=== PATIENT | female | born 1935 ===

== ENCOUNTER 2016-12-17 20:09 | Emergency (ER) | payer OTHER ==
[2016-12-17 20:10] VITALS: BMI 26.2
[2016-12-17 20:19] VITALS: TEMP 97.7; O2SAT 97
--- NOTE | 2016-12-17 21:04 | C.PDOC ---
History Of Present Illness 81 y/o female, whose past medical history includes HTN, hyperlipidemia, diabetes , and polio, with left lower leg weakness, presents to the emergency department for evaluation of worsening periumbilical abdominal pain that radiates to the right flank. Otherwise, denies any n/v/d, chest pain, shortness of breath, headache, dizziness, fever, or chills. Time Seen by Provider: 12/17/16 20:48 Chief Complaint (Nursing): Abdominal Pain History Per: Patient History/Exam Limitations: no limitations Onset/Duration Of Symptoms: Days Current Symptoms Are (Timing): Still Present Location Of Pain/Discomfort: Periumbilical Radiation Of Pain To:: Flank (right) Quality Of Discomfort: "Pain" Associated Symptoms: denies: Fever, Chills, Nausea, Vomiting, Diarrhea, Loss Of Appetite, Back Pain, Chest Pain, Constipation, Urinary Symptoms Exacerbating Factors: None Alleviating Factors: None Recent travel outside of the [place]: No Additional History Per: Patient Abnormal Vaginal Bleeding: No Past Medical History Reviewed: Historical Data, Nursing Documentation, Vital Signs Vital Signs: Last Vital Signs Temp 97.7 F 12/17/16 20:18 Pulse 69 12/17/16 21:54 Resp 18 12/17/16 21:54 BP 175/79 H 12/17/16 21:54 Pulse Ox 97 12/17/16 21:54 - Medical History PMH: Anxiety, Arthritis, Depression, Diabetes, HTN, Hypercholesterolemia, Hypothyroidism, Peripheral Edema Denies: Chronic Kidney Disease Surgical History: Cholecystectomy - [facility] Procedures INJECT/INFUSE ELECTROLYT (01/16/15) INJECT/INFUSE NEC (01/16/15) Family History: States: Unknown Family Hx - Social History Hx Tobacco Use: Yes (Quit 20yrs ago) Hx Alcohol Use: No Hx Substance Use: No - Immunization History Hx Tetanus Toxoid Vaccination: No Hx Influenza Vaccination: Yes Hx Pneumococcal Vaccination: Yes Review Of Systems Except As Marked, All Systems Reviewed And Found Negative. Constitutional: Negative for: Fever, Chills Cardiovascular: Negative for: Chest Pain, Palpitations Respiratory: Negative for: Cough, Shortness of Breath Gastrointestinal: Positive for: Abdominal Pain. Negative for: Nausea, Vomiting , Diarrhea, Constipation Genitourinary: Negative for: Dysuria, Frequency, Incontinence, Hematuria Skin: Negative for: Rash, Bruising Neurological: Negative for: Headache, Dizziness Physical Exam - Physical Exam Appears: Non-toxic, No Acute Distress Skin: Normal Color, Warm, Dry Head: Atraumatic, Normacephalic Eye(s): bilateral: Normal Inspection Neck: Normal ROM, Supple Chest: Symmetrical Cardiovascular: Rhythm Regular, No Murmur Respiratory: Normal Breath Sounds, No Rales, No Rhonchi, No Wheezing Gastrointestinal/Abdominal: Soft, Tenderness (mild right periumbilical), No Guarding, No Rebound Back: CVA Tenderness (right), No Vertebral Tenderness, No Paraspinal Tenderness Extremity: Bilateral: Atraumatic, Normal ROM Neurological/Psych: Oriented x3, Normal Speech, Normal Cognition ED Course And Treatment - Laboratory Results Result Diagrams: 12/17/16 21:05 12/17/16 21:05 ECG: Interpreted By Me, Viewed By Me ECG Rhythm: Sinus Rhythm ECG Interpretation: No Acute Changes Interpretation Of ECG: No ST wave changes. Rate From EC (bpm) O2 Sat by Pulse Oximetry: 97 (on RA) Pulse Ox Interpretation: Normal Progress Note: Blood work, urinalysis, Abd & pelvis CT scan, EKG ordered and reviewed. Patient was treated with Toradol, and Pantoprazole. Medical Decision Making Medical Decision Making: r/o gastirits vs uti/pyelo vs renal stone- labs imaging pending. pt well appearing, minimal ttp on exam 1015: pt reasessed labs ct unremarkbable. pain improved. advise outpt f/u and return precautions Disposition - Disposition Referrals: Non [facility] Provider, [Primary Care Provider] - Disposition Time: 22:12 Condition: STABLE Additional Instructions: please follow up with your doctor. return to er with worsening symptoms or concerns. Prescriptions: Famotidine [Pepcid] 20 mg PO DAILY #20 tab Instructions: Acute Abdominal Pain (ED) - Clinical Impression Clinical Impression: Abdominal pain - Scribe Statement The provider has reviewed the documentation as recorded by the Scribcamelia Rosenthal All medical record entries made by the Scribe were at my direction and personally dictated by me. I have reviewed the chart and agree that the record accurately reflects my personal performance of the history, physical exam, medical decision making, and the department course for this patient. I have also personally directed, reviewed, and agree with the discharge instructions and disposition.
[2016-12-17 21:09] LABS: BASO % 0.5 % (0.0-2.0); EOS # 0.2 K/uL (0.0-0.7); EOS % 1.8 % (0.0-4.0); HEMOGLOBIN 13.9 g/dL (11.0-16.0); LYMPH # 3.4 K/uL (1.0-4.3); LYMPH % 40.1 % (20.0-40.0); MEAN CELL VOLUME 89.8 fL (81.0-99.0); MEAN CORPUSCULAR HEMOGLOBIN 30.7 pg (27.0-31.0); MEAN CORPUSCULAR HGB CONC 34.1 g/dL (33.0-37.0); MEAN PLATELET VOLUME 7.6 fL (7.2-11.7); MONO # 0.6 K/uL (0.0-0.8); MONO % 6.6 % (0.0-10.0); NEUT # 4.3 K/uL (1.8-7.0); NRBC % 0.1 % (0.0-2.0); RBC 4.55 Mil/uL (3.80-5.20); RED CELL DISTRIBUTION WIDTH 13.7 % (11.5-14.5); WHITE BLOOD COUNT 8.5 K/uL (4.8-10.8)
[2016-12-17 21:16] LABS: ALBUMIN 4.1 g/dL (3.5-5.0)
[2016-12-17 21:19] LABS: ALB/GLOB RATIO 1.1 (1.0-2.1); AST/SGOT 20 U/L (14-36); BLOOD UREA NITROGEN 16 mg/dL (7-17); GFR AFRICAN-AMERICAN > 60; GFR NON-AFRICAN AMERICAN > 60
[2016-12-17 21:20] LABS: ALT/SGPT 26 U/L (9-52); CALCIUM 8.5 mg/dl (8.6-10.4); LIPASE 106 U/L (23-300)
[2016-12-17 21:35] LABS: PROTHROMBIN TIME 11.6 SECONDS (9.7-12.2)
--- NOTE | 2016-12-17 21:53 | CT ---
EXAM: CT Abdomen and Pelvis Without Intravenous Contrast CLINICAL HISTORY: 81 years old, female; Pain; Abdominal pain; Localized; Right; Additional info: Abd pain TECHNIQUE: Axial computed tomography images of the abdomen and pelvis without intravenous contrast. This CT exam was performed using one or more of the following dose reduction techniques: automated exposure control, adjustment of the mA and/or kV according to patient size, and/or use of iterative reconstruction technique. Coronal and sagittal reformatted images were created and reviewed. COMPARISON: No relevant prior studies available. FINDINGS: Limitations: Lack of intravenous contrast. Motion artifact - mild. Lower thorax: Minimal atelectasis/scarring. Coronary artery calcifications. ABDOMEN: Liver: Small hepatic calcification. Gallbladder and bile ducts: Gallbladder not visualized. No ductal dilation. Pancreas: Unremarkable. No ductal dilation. Spleen: Small splenic calcification. No splenomegaly. Adrenals: No mass. Kidneys and ureters: No renal calculi. No hydronephrosis. Stomach and bowel: Few scattered diverticula within colon. No associated inflammatory stranding. No definite mural thickening. No obstruction. Appendix: Normal caliber. No inflammation. PELVIS: Bladder: Unremarkable. No stones. Reproductive: Unremarkable as visualized. ABDOMEN and PELVIS: Intraperitoneal space: No significant fluid collection. No free air. Bones/joints: Mild degenerative changes of spine. Mild deformity superior endplate L1 vertebral body, chronic. Soft tissues: Partial atrophy visualized musculature. Vasculature: Aksh-ut-bykmmdew atherosclerotic disease. No aneurysm. Lymph nodes: No pathologically enlarged lymph nodes. IMPRESSION: 1. No definite acute intraabdominal abnormality. 2. Incidental/non-acute findings are described above.
[2016-12-17 21:56] LABS: SQUAMOUS EPITHIAL 6 /hpf (0-5); URINE BACTERIA RARE (<OCC); URINE BILIRUBIN NEGATIVE (NEGATIVE); URINE BLOOD NEGATIVE (NEGATIVE); URINE CLARITY Clear (Clear); URINE COLOR Straw (YELLOW); URINE GLUCOSE (UA) 1+ mg/dL (Normal); URINE LEUKOCYTE ESTERASE NEG Leu/uL (Negative); URINE NITRATE NEGATIVE (NEGATIVE); URINE PROTEIN 2+ mg/dL (NEGATIVE); URINE UROBILINOGEN NORMAL mg/dL (0.2-1.0)
[2016-12-17 21:57] VITALS: BP 175/79; PULSE 69; RESP 18
--- NOTE | 2016-12-18 12:12 | CARD ---
APPROVED REPORT EKG Measurement Heart [id number] <Conclusion> Normal sinus rhythm Left axis deviation Abnormal ECG
== END 2016-12-17 22:35 | disposition home or self-care (01) ==
LOC: C.ER 20:09 → SUPCPDRO 20:09 → C.ER 22:35
DX: R10.33 Periumbilical pain (principal)
CPT/HCPCS: 74176; 80053; 81001; 82948; 83690; 84484; 85025; 85610; 85730; 93005; 96374; 96375; 99285; C9113; J1885

== ENCOUNTER 2017-06-22 13:18 | Emergency (ER) | payer OTHER ==
[2017-06-22 13:19] VITALS: BMI 26.2
[2017-06-22 13:29] VITALS: O2SAT 96
--- NOTE | 2017-06-22 13:42 | C.PDOC ---
History Of Present Illness 82-year-old female, PMHx includes Anxiety, Arthritis, Bipolar Disorder, Depression, Diabetes, Deep Vein Thrombosis, Hypertension, Hypercholesterolemia, Hypothyroidism, and Peripheral Edema, presents to the emergency department accompanied by restaurant crew, with complaints of left-sided abdominal and back pain for the past three days. Patient is taking Tylenol at home with minimal relief. Secondary complaint is numbness in B/L hands and right side of face at 11:30 this morning that has now resolved. No changes in speech, no facial droop, no changes in vision, no nausea/vomiting, diarrhea, fevers or chills. Time Seen by Provider: 06/22/17 13:30 Chief Complaint (Nursing): Back Pain History Per: Family History/Exam Limitations: no limitations Onset/Duration Of Symptoms: Days Current Symptoms Are (Timing): Still Present Severity: Moderate Past Medical History Reviewed: Historical Data, Nursing Documentation, Vital Signs Vital Signs: Last Vital Signs Temp 97.5 F L 06/22/17 19:06 Pulse 99 H 06/22/17 19:06 Resp 20 06/22/17 19:06 BP 180/81 H 06/22/17 19:06 Pulse Ox 96 06/22/17 19:06 - Medical History PMH: Anxiety, Arthritis, Bipolar Disorder, Depression, Diabetes, Deep Vein Thrombosis, HTN, Hypercholesterolemia, Hypothyroidism, Peripheral Edema Denies: Chronic Kidney Disease Surgical History: Cholecystectomy - [facility] Procedures INJECT/INFUSE ELECTROLYT (01/16/15) INJECT/INFUSE NEC (01/16/15) Family History: States: No Known Family Hx - Social History Hx Tobacco Use: Yes (Quit 20yrs ago) Hx Alcohol Use: No Hx Substance Use: No - Immunization History Hx Tetanus Toxoid Vaccination: No Hx Influenza Vaccination: Yes Hx Pneumococcal Vaccination: Yes Review Of Systems Except As Marked, All Systems Reviewed And Found Negative. Constitutional: Negative for: Fever, Chills Cardiovascular: Negative for: Chest Pain, Palpitations Respiratory: Negative for: Shortness of Breath Gastrointestinal: Positive for: Abdominal Pain Musculoskeletal: Positive for: Back Pain, Leg Pain (chronic.) Neurological: Positive for: Numbness (right face, and hands, now resolved.). Negative for: Incoordination, Change in Speech, Confusion, Altered Mental Status , Headache, Dizziness Physical Exam - Physical Exam Appears: Non-toxic, No Acute Distress, Other (Appears in pain) Skin: Warm, Dry, No Rash Head: Atraumatic, Normacephalic Eye(s): bilateral: Normal Inspection, PERRL Oral Mucosa: Moist Lips: Normal Appearing Neck: Normal ROM Chest: Symmetrical Cardiovascular: Rhythm Regular, No Murmur Respiratory: Normal Breath Sounds, No Accessory Muscle Use Gastrointestinal/Abdominal: Soft, Tenderness (Left-sided), No Guarding, No Rebound Back: CVA Tenderness (Left) Extremity: Deformity (chronic, left lower extremity, Hx of Polio) Pulses: Left Radial: Normal, Right Radial: Normal, Left Femoral: Normal, Right Femoral: Normal Neurological/Psych: Oriented x3, Normal Speech, Other (No focal deficit.) ED Course And Treatment - Laboratory Results Result Diagrams: 06/22/17 14:04 06/22/17 14:41 ECG: Interpreted By Me, Viewed By Me ECG Rhythm: Sinus Rhythm ECG Interpretation: No Acute Changes Rate From EC O2 Sat by Pulse Oximetry: 96 Pulse Ox Interpretation: Normal Medical Decision Making Medical Decision Makin pt feeling better, pain starting to return, mainly in back now [address] Weir will admit [address] Ortiz will consult Disposition - Disposition Disposition: AGAINST MEDICAL ADVICE Disposition Time: 17:51 Condition: STABLE Forms: [facility] (Estonian) - Clinical Impression Clinical Impression: Abdominal pain, Back pain, Celiac artery stenosis - Scribe Statement The provider has reviewed the documentation as recorded by the Scribe (Remedios Alvarez) All medical record entries made by the Scribe were at my direction and personally dictated by me. I have reviewed the chart and agree that the record accurately reflects my personal performance of the history, physical exam, medical decision making, and the department course for this patient. I have also personally directed, reviewed, and agree with the discharge instructions and disposition.
[2017-06-22 14:17] LABS: BASO # 0.1 K/uL (0.0-0.2); BASO % 0.5 % (0.0-2.0); EOS # 0.1 K/uL (0.0-0.7); EOS % 0.8 % (0.0-4.0); HEMOGLOBIN 15.3 g/dL (11.0-16.0); LYMPH # 3.3 K/uL (1.0-4.3); LYMPH % 28.6 % (20.0-40.0); MEAN CELL VOLUME 90.8 fL (81.0-99.0); MEAN CORPUSCULAR HEMOGLOBIN 30.9 pg (27.0-31.0); MEAN PLATELET VOLUME 8.7 fL (7.2-11.7); MONO # 0.6 K/uL (0.0-0.8); MONO % 5.2 % (0.0-10.0); NEUT # 7.5 K/uL (1.8-7.0); NEUT % 64.9 % (50.0-75.0); RBC 4.95 Mil/uL (3.80-5.20); RED CELL DISTRIBUTION WIDTH 13.5 % (11.5-14.5); WHITE BLOOD COUNT 11.5 K/uL (4.8-10.8)
[2017-06-22] MEDS ORDERED: Morphine 4 MG/ML VIAL ONE (14:38)
--- NOTE | 2017-06-22 14:52 | RAD ---
HISTORY: abd and back pain COMPARISON: 03/30/2017 FINDINGS: LUNGS: No active pulmonary disease. PLEURA: No significant pleural effusion identified, no pneumothorax apparent. CARDIOVASCULAR: Normal. OSSEOUS STRUCTURES: No significant abnormalities. VISUALIZED UPPER ABDOMEN: Normal. OTHER FINDINGS: None. IMPRESSION: No active disease.
[2017-06-22 14:58] LABS: ALBUMIN 4.6 g/dL (3.5-5.0); ALT/SGPT 31 U/L (9-52); AST/SGOT 29 U/L (14-36); BLOOD UREA NITROGEN 19 mg/dL (7-17); CALCIUM 9.9 mg/dl (8.6-10.4); GFR AFRICAN-AMERICAN > 60; GFR NON-AFRICAN AMERICAN > 60; LIPASE 51 U/L (23-300)
[2017-06-22] MEDS ORDERED: Iodixanol 320 mg/ml 150 ml Bottle IV ONE (15:50)
--- NOTE | 2017-06-22 16:47 | CT ---
PROCEDURE: CT Angiography Chest, Abdomen and Pelvis with and without intravenous contrast HISTORY: abd pain rad to back, facial numbness COMPARISON: None. TECHNIQUE: Contiguous axial images of the chest, abdomen and pelvis were obtained in the phase of aortic enhancement. A noncontrast enhanced CT of the chest was also obtained to evaluate for possible intramural thrombus. Coronal and sagittal reformats were generated. IV dose administered: 100 mL Visipaque 320 Radiation dose: Total exam DLP = 936.08 mGy-cm. This CT exam was performed using one or more of the following dose reduction techniques: Automated exposure control, adjustment of the mA and/or kV according to patient size, and/or use of iterative reconstruction technique. FINDINGS: CT ANGIOGRAPHY OF THE CHEST WITH & WITHOUT CONTRAST: AORTA (CHEST AND ABDOMEN): The thoracic and abdominal aorta are unremarkable, without aneurysm, dissection or rupture. No intramural thrombus identified in the thoracic aorta on the non-contrast ct of the chest. There is approximately 70 percent stenosis of the proximal celiac axis. The SMA and NICOLE are widely patent. The renal arteries are widely patent. The pelvic arteries are unremarkable. LUNGS: Clear. No nodule, mass or consolidation. MEDIASTINUM: Normal caliber aorta and pulmonary arterial trunk. No lymphadenopathy. 10 mm nodule in the right lobe of the thyroid. Correlate with thyroid ultrasound examination on a nonemergent basis. Normal heart size. Coronary arterial calcification. LYMPH NODES: Unremarkable. PLEURA: Unremarkable. No pneumothorax. No pleural fluid. BONES: Thoracolumbar dextroscoliosis. No fracture. OTHER FINDINGS: None. CT ANGIOGRAPHY OF THE ABDOMEN AND PELVIS WITH CONTRAST: LIVER: Unremarkable. No gross lesion or ductal dilatation. GALLBLADDER AND BILE DUCTS: Unremarkable. PANCREAS: Unremarkable. No gross lesion or ductal dilatation. SPLEEN: Unremarkable. ADRENALS: Unremarkable. No mass. KIDNEYS AND URETERS: Unremarkable. No hydronephrosis. No solid mass. VASCULATURE: Unremarkable. No aortic aneurysm. STOMACH AND BOWEL: Unremarkable. No obstruction. No gross mural thickening. APPENDIX: Not positively identified. No secondary findings. PERITONEUM: Unremarkable. No free fluid. No free air. LYMPH NODES: Unremarkable. No enlarged lymph nodes. BLADDER: Unremarkable. REPRODUCTIVE: Normal uterus BONES: No acute fracture. OTHER FINDINGS: None. IMPRESSION: No evidence of aortic dissection or thoracic or abdominal aortic aneurysm. 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 Additional minor findings as above.
[2017-06-22 17:17] LABS: VENOUS BLOOD GAS PCO2 45 mmHg (40-60); VENOUS BLOOD GAS PO2 35 mm/Hg (30-55); VENOUS BLOOD PH 7.38 (7.32-7.43)
[2017-06-22] MEDS ORDERED: Sodium Chloride 0.9% 1,000 ML IV SCH (18:00)
[2017-06-22 18:25] LABS: SQUAMOUS EPITHIAL 23 /hpf (0-5); URINE BACTERIA OCC (<OCC); URINE BILIRUBIN NEGATIVE (NEGATIVE); URINE BLOOD NEGATIVE (NEGATIVE); URINE CLARITY Hazy (Clear); URINE COLOR Yellow (YELLOW); URINE GLUCOSE (UA) 1+ mg/dL (Normal); URINE LEUKOCYTE ESTERASE 3+ Leu/uL (Negative); URINE NITRATE NEGATIVE (NEGATIVE); URINE PROTEIN 3+ mg/dL (NEGATIVE); URINE UROBILINOGEN NORMAL mg/dL (0.2-1.0)
[2017-06-22 19:06] VITALS: BP 180/81; PULSE 99; RESP 20; TEMP 97.5
[2017-06-22] MEDS ORDERED: Morphine 4 MG/ML VIAL IV PRN (19:26)
--- NOTE | 2017-06-22 20:09 | CP.PCM.HP ---
History of Present Illness - History of Present Illness History of Present Illness: CC: "abdominal pain" HPI: 82 year old female with past medical history of DM, HTN, polio presents to the ED for abdominal pain. She states the pain has been going on for the past 3 days. She states she only feels the pain when she moves. She states the pain is low at this moment but could not give a number. Patient could not describe the pain.. She states the pain radiates to her left side and back. Patient denies nausea, vomiting, diarrhea, constipation, chest pain, difficulty breathing, or fever. She states she has been able to eat without pain. PMD: Dr. Dr. Fay Rodgers Past Medical History: DM, HTN, polio, thyroid (patient was not sure), arthritis Past Surgical History: Cholecystectomy, blood clot in the left arm, right eye glaucoma Medications: Patient's daughter will bring next day Allergies: NKDA Social History: Lives with , used a walker but for the past 8 years has been in a wheel chair, denies illicit drug use and alcohol. Smoked for about 30 years about 1 pack per day. Present on Admission - Present on Admission Any Indicators Present on Admission: No Review of Systems - Constitutional Constitutional: absent: Fever - Cardiovascular Cardiovascular: absent: Chest Pain, Dyspnea - Respiratory Respiratory: absent: Dyspnea - Gastrointestinal Gastrointestinal: Abdominal Pain (left abdominal pain radiating to her back ). absent: Nausea, Vomiting - Genitourinary Genitourinary: absent: Dysuria - Musculoskeletal Musculoskeletal: absent: Numbness, Tingling - Neurological Neurological: absent: Dizziness, Numbness, Weakness Past Patient History - Infectious Disease Hx of Infectious Diseases: None - Tetanus Immunizations Tetanus Immunization: Unknown - Past Medical History & Family History Past Medical History?: Yes - Past Social History Smoking Status: Former Smoker - CARDIAC Hx Hypercholesterolemia: Yes Hx Hypertension: Yes Hx Peripheral Edema: Yes - PULMONARY Hx Respiratory Disorders: No - NEUROLOGICAL Hx Neurological Disorder: No - HEENT Hx HEENT Problems: Yes Hx Blind: Yes (right eye) Hx Cataracts: Yes - RENAL Hx Chronic Kidney Disease: No - ENDOCRINE/METABOLIC Hx Hypothyroidism: Yes - HEMATOLOGICAL/ONCOLOGICAL Hx Blood Disorders: No - INTEGUMENTARY Hx Dermatological Problems: Yes - MUSCULOSKELETAL/RHEUMATOLOGICAL Hx Arthritis: Yes - GASTROINTESTINAL Hx Gastrointestinal Disorders: No - GENITOURINARY/GYNECOLOGICAL Hx Genitourinary Disorders: No - PSYCHIATRIC Hx Anxiety: Yes Hx Bipolar Disorder: Yes Hx Depression: Yes Hx Substance Use: No - SURGICAL HISTORY Hx Cholecystectomy: Yes - ANESTHESIA Hx Anesthesia: Yes Hx Anesthesia Reactions: No Hx Malignant Hyperthermia: No Meds Allergies/Adverse Reactions: Allergies Allergy/AdvReac Type Severity Reaction Status Date / Time No Known Allergies Allergy Verified 03/30/17 11:02 Physical Exam - Constitutional Appears: Well, No Acute Distress - Head Exam Head Exam: ATRAUMATIC, NORMAL INSPECTION - Eye Exam Eye Exam: EOMI, Normal appearance - ENT Exam ENT Exam: Mucous Membranes Moist - Respiratory Exam Respiratory Exam: Clear to Auscultation Bilateral, NORMAL BREATHING PATTERN - Cardiovascular Exam Cardiovascular Exam: +S1, +S2. absent: REGULAR RHYTHM - GI/Abdominal Exam GI & Abdominal Exam: Normal Bowel Sounds, Soft. absent: Distended, Guarding, Tenderness - Extremities Exam Extremities exam: Positive for: normal inspection - Neurological Exam Neurological exam: Alert, Oriented x3 - Psychiatric Exam Psychiatric exam: Agitated, Normal Affect, Normal Mood - Skin Skin Exam: Normal Color, Warm Results - Vital Signs Recent Vital Signs: Last Vital Signs Temp 97.5 F L 06/22/17 19:06 Pulse 99 H 06/22/17 19:06 Resp 20 06/22/17 19:06 BP 180/81 H 06/22/17 19:06 Pulse Ox 96 06/22/17 19:06 - Labs Result Diagrams: 06/22/17 14:04 06/22/17 14:41 Labs: Laboratory Results - last 24 hr 06/22/17 06/22/17 06/22/17 14:04 14:04 14:29 WBC 11.5 H RBC 4.95 Hgb 15.3 Hct 45.0 MCV 90.8 MCH 30.9 MCHC 34.0 RDW 13.5 Plt Count 296 MPV 8.7 Neut % (Auto) 64.9 Lymph % (Auto) 28.6 [place] % (Auto) 5.2 Eos % (Auto) 0.8 Baso % (Auto) 0.5 Neut # 7.5 H Lymph # 3.3 [place] # 0.6 Eos # 0.1 Baso # 0.1 pO2 VBG pH VBG pCO2 VBG HCO3 VBG Total CO2 VBG O2 Sat (Calc) VBG Base Excess VBG Potassium Glucose Lactate Sodium Cancelled Potassium Cancelled Chloride Cancelled Carbon Dioxide Cancelled Anion Gap Cancelled BUN Cancelled Creatinine Cancelled Est GFR ( Amer) Cancelled Est GFR (Non-Af Amer) Cancelled Random Glucose Cancelled Calcium Cancelled Total Bilirubin Cancelled AST Cancelled ALT Cancelled Alkaline Phosphatase Cancelled Troponin I Cancelled Total Protein Cancelled Albumin Cancelled Globulin Cancelled Albumin/Globulin Ratio Cancelled Lipase Cancelled Venous Blood Potassium Urine Color Urine Clarity Urine pH Ur Specific [place] Urine Protein Urine Glucose (UA) Urine Ketones Urine Blood Urine Nitrate Urine Bilirubin Urine Urobilinogen Ur Leukocyte Esterase Urine WBC (Auto) Urine RBC (Auto) Ur Squamous Epith Cells Urine Bacteria Blood Type A POSITIVE Antibody Screen Negative 06/22/17 06/22/17 06/22/17 14:41 17:14 18:02 WBC RBC Hgb Hct MCV MCH MCHC RDW Plt Count MPV Neut % (Auto) Lymph % (Auto) [place] % (Auto) Eos % (Auto) Baso % (Auto) Neut # Lymph # [place] # Eos # Baso # pO2 35 VBG pH 7.38 VBG pCO2 45 VBG HCO3 24.9 VBG Total CO2 28.0 VBG O2 Sat (Calc) 74.2 H VBG Base Excess 1.0 VBG Potassium 3.9 Glucose 161 H Lactate 1.3 Sodium 134 133.0 Potassium 4.2 Chloride 97 L 101.0 Carbon Dioxide 26 Anion Gap 15 BUN 19 H Creatinine 0.6 L Est GFR ( Amer) > 60 Est GFR (Non-Af Amer) > 60 Random Glucose 224 H Calcium 9.9 Total Bilirubin 0.9 AST 29 ALT 31 Alkaline Phosphatase 82 Troponin I < 0.0120 Total Protein 9.2 H Albumin 4.6 Globulin 4.6 H Albumin/Globulin Ratio 1.0 Lipase 51 Venous Blood Potassium 3.9 Urine Color Yellow Urine Clarity Hazy Urine pH 6.0 Ur Specific [place] 1.027 Urine Protein 3+ H Urine Glucose (UA) 1+ Urine Ketones Negative Urine Blood Negative Urine Nitrate Negative Urine Bilirubin Negative Urine Urobilinogen Normal Ur Leukocyte Esterase 3+ H Urine WBC (Auto) 45 H Urine RBC (Auto) 3 Ur Squamous Epith Cells 23 H Urine Bacteria Occ H Blood Type Antibody Screen Assessment & Plan - Assessment and Plan (Free Text) Assessment: 1.) Abdominal pain CT Dissection: No evidence of aortic dissection or thoracic or abdominal aortic aneurysm. 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 Additional minor findings as above. Chest Xray: No active disease. Trop Negative EKG NSR UA negative Vascular Surgery Consult: Dr. Fall --> help appreciated - Morphine 1mg IV q4 prn for pain - CLD 2.) Hx of HTN - Hydralazine 10mg q6h prn - Monitor 3.) Hx of DM 4.) Prophylaxis - SCDs - Protonix 40mg IV q12 - Contraindication of VTE if patient needs surgery Case discussed with Dr. Casi Duval PGY-1
--- NOTE | 2017-06-22 20:16 | CP.PCM.DIS ---
Provider - Provider Date of Admission: 06/22/17 17:48 Attending physician: Ly Weir DO Time Spent in preparation of Discharge (in minutes): 40 Hospital Course - Lab Results Lab Results: Most Recent Lab Values WBC 11.5 K/uL (4.8-10.8) H 06/22/17 14:04 RBC 4.95 Mil/uL (3.80-5.20) 06/22/17 14:04 Hgb 15.3 g/dL (11.0-16.0) 06/22/17 14:04 Hct 45.0 % (34.0-47.0) 06/22/17 14:04 MCV 90.8 fL (81.0-99.0) 06/22/17 14:04 MCH 30.9 pg (27.0-31.0) 06/22/17 14:04 MCHC 34.0 g/dL (33.0-37.0) 06/22/17 14:04 RDW 13.5 % (11.5-14.5) 06/22/17 14:04 Plt Count 296 K/uL (130-400) 06/22/17 14:04 MPV 8.7 fL (7.2-11.7) 06/22/17 14:04 Neut % (Auto) 64.9 % (50.0-75.0) 06/22/17 14:04 Lymph % (Auto) 28.6 % (20.0-40.0) 06/22/17 14:04 Hardy % (Auto) 5.2 % (0.0-10.0) 06/22/17 14:04 Eos % (Auto) 0.8 % (0.0-4.0) 06/22/17 14:04 Baso % (Auto) 0.5 % (0.0-2.0) 06/22/17 14:04 Neut # 7.5 K/uL (1.8-7.0) H 06/22/17 14:04 Lymph # 3.3 K/uL (1.0-4.3) 06/22/17 14:04 Hardy # 0.6 K/uL (0.0-0.8) 06/22/17 14:04 Eos # 0.1 K/uL (0.0-0.7) 06/22/17 14:04 Baso # 0.1 K/uL (0.0-0.2) 06/22/17 14:04 pO2 35 mm/Hg (30-55) 06/22/17 17:14 VBG pH 7.38 (7.32-7.43) 06/22/17 17:14 VBG pCO2 45 mmHg (40-60) 06/22/17 17:14 VBG HCO3 24.9 mmol/L 06/22/17 17:14 VBG Total CO2 28.0 mmol/L (22-28) 06/22/17 17:14 VBG O2 Sat (Calc) 74.2 % (40-65) H 06/22/17 17:14 VBG Base Excess 1.0 mmol/L (0.0-2.0) 06/22/17 17:14 VBG Potassium 3.9 mmol/L (3.6-5.2) 06/22/17 17:14 Sodium 133.0 mmol/l (132-148) 06/22/17 17:14 Chloride 101.0 mmol/L (98-107) 06/22/17 17:14 Glucose 161 mg/dl (65-105) H 06/22/17 17:14 Lactate 1.3 mmol/L (0.7-2.1) 06/22/17 17:14 Sodium 134 mmol/L (132-148) 06/22/17 14:41 Potassium 4.2 mmol/L (3.6-5.2) 06/22/17 14:41 Chloride 97 mmol/L (98-107) L 06/22/17 14:41 Carbon Dioxide 26 mmol/L (22-30) 06/22/17 14:41 Anion Gap 15 (10-20) 06/22/17 14:41 BUN 19 mg/dL (7-17) H 06/22/17 14:41 Creatinine 0.6 mg/dL (0.7-1.2) L 06/22/17 14:41 Est GFR ( Amer) > 60 06/22/17 14:41 Est GFR (Non-Af Amer) > 60 06/22/17 14:41 Random Glucose 224 mg/dL (65-105) H 06/22/17 14:41 Calcium 9.9 mg/dl (8.6-10.4) 06/22/17 14:41 Total Bilirubin 0.9 mg/dL (0.2-1.3) 06/22/17 14:41 AST 29 U/L (14-36) 06/22/17 14:41 ALT 31 U/L (9-52) 06/22/17 14:41 Alkaline Phosphatase 82 U/L (38-126) 06/22/17 14:41 Troponin I < 0.0120 ng/mL (0.00-0.120) 06/22/17 14:41 Total Protein 9.2 g/dL (6.3-8.3) H 06/22/17 14:41 Albumin 4.6 g/dL (3.5-5.0) 06/22/17 14:41 Globulin 4.6 gm/dL (2.2-3.9) H 06/22/17 14:41 Albumin/Globulin Ratio 1.0 (1.0-2.1) 06/22/17 14:41 Lipase 51 U/L (23-300) 06/22/17 14:41 Venous Blood Potassium 3.9 mmol/L (3.6-5.2) 06/22/17 17:14 Urine Color Yellow (YELLOW) 06/22/17 18:02 Urine Clarity Hazy (Clear) 06/22/17 18:02 Urine pH 6.0 (5.0-8.0) 06/22/17 18:02 Ur Specific [place] 1.027 (1.003-1.030) 06/22/17 18:02 Urine Protein 3+ mg/dL (NEGATIVE) H 06/22/17 18:02 Urine Glucose (UA) 1+ mg/dL (Normal) 06/22/17 18:02 Urine Ketones Negative mg/dL (NEGATIVE) 06/22/17 18:02 Urine Blood Negative (NEGATIVE) 06/22/17 18:02 Urine Nitrate Negative (NEGATIVE) 06/22/17 18: Urine Bilirubin Negative (NEGATIVE) 06/22/17 18:02 Urine Urobilinogen Normal mg/dL (0.2-1.0) 06/22/17 18:02 Ur Leukocyte Esterase 3+ Emani/uL (Negative) H 06/22/17 18:02 Urine WBC (Auto) 45 /hpf (0-5) H 06/22/17 18:02 Urine RBC (Auto) 3 /hpf (0-3) 06/22/17 18:02 Ur Squamous Epith Cells 23 /hpf (0-5) H 06/22/17 18:02 Urine Bacteria Occ (<OCC) H 06/22/17 18:02 Blood Type A POSITIVE 06/22/17 14:29 Antibody Screen Negative 06/22/17 14:29 - Hospital Course Hospital Course: HPI: 82 year old female with past medical history of DM, HTN, polio presents to the ED for abdominal pain. She states the pain has been going on for the past 3 days. She states she only feels the pain when she moves. She states the pain is low at this moment but could not give a number. Patient could not describe the pain.. She states the pain radiates to her left side and back. Patient denies nausea, vomiting, diarrhea, constipation, chest pain, difficulty breathing, or fever. She states she has been able to eat without pain. PMD: Dr. Dr. Fay Rodgers Past Medical History: DM, HTN, polio, thyroid (patient was not sure), arthritis Past Surgical History: Cholecystectomy, blood clot in the left arm, right eye glaucoma Medications: Patient's daughter will bring next day Allergies: NKDA Social History: Lives with , used a walker but for the past 8 years has been in a wheel chair, denies illicit drug use and alcohol. Smoked for about 30 years about 1 pack per day. Hospital Course: CT Dissection: No evidence of aortic dissection or thoracic or abdominal aortic aneurysm. 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 Additional minor findings as above. Chest Xray: No active disease. Trop Negative EKG NSR UA negative Vascular Surgery Consult: Dr. Fall --> help appreciated Patient signed out against medical advice. Resident Misha discussed with patient the risks such as bleeding, infection and . Patient understood those risks and signed out. Discharge Exam - Head Exam Head Exam: ATRAUMATIC, NORMAL INSPECTION Discharge Plan - Follow Up Plan Condition: STABLE Disposition: AGAINST MEDICAL ADVICE
--- NOTE | 2017-06-28 00:32 | CARD ---
APPROVED REPORT EKG Measurement Heart [id number] [place] [id number] <Conclusion> Normal sinus rhythm Septal infarct, age undetermined Abnormal ECG
== END 2017-06-22 20:19 | disposition left against medical advice (07) ==
LOC: C.ER 13:18 → C.9E 17:48 → UNDOADMIN 17:48 → C.5S 18:44 → C.9E 18:44 → C.5S 20:00 → C.ER 20:19
DX: R10.9 Unspecified abdominal pain (principal); M54.9 Dorsalgia, unspecified; I77.4 Celiac artery compression syndrome
CPT/HCPCS: 71045; 71275; 74175; 80053; 81001; 82803; 83690; 84484; 85025; 86850; 86900; 93005; 96361; 96374; 99285; J2270; J7040; Q9967

== ENCOUNTER 2017-06-24 12:51 | Emergency (ER) | payer OTHER ==
[2017-06-24 13:08] VITALS: BMI 31.3
[2017-06-24 13:35] VITALS: BP 175/88; PULSE 88; RESP 18; TEMP 97.6; O2SAT 97
--- NOTE | 2017-06-24 13:46 | C.PDOC ---
History Of Present Illness 82 y/o female with extensive PMHx including DM, Arthritis and HTN presents to ED with complaints of abdominal pain at the L alteral aspect overlying the L lateral floating ribs for 5 days. As per who is at bedside patient was seen at ED 2 days ago was going to be admitted but patient left AMA. 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 states patient did not feel pain and wanted to go home, upon arriving home patient developed pain again and has been taking Tylenol with minimal improvement. Patient reports urinary frequency and denies nausea, vomiting, blood in stool or any other complaints at this time. Time Seen by Provider: 06/24/17 13:25 Chief Complaint (Nursing): Abdominal Pain History Per: Patient, Family History/Exam Limitations: no limitations Onset/Duration Of Symptoms: Days Current Symptoms Are (Timing): Still Present Past Medical History Reviewed: Historical Data, Nursing Documentation, Vital Signs Vital Signs: Last Vital Signs Temp 97.6 F 06/24/17 13:27 Pulse 88 06/24/17 13:27 Resp 18 06/24/17 13:27 BP 175/88 H 06/24/17 13:27 Pulse Ox 97 06/24/17 13:52 - Medical History PMH: Anxiety, Arthritis, Bipolar Disorder, Depression, Diabetes, Deep Vein Thrombosis, HTN, Hypercholesterolemia, Hypothyroidism, Peripheral Edema Surgical History: Cholecystectomy - [facility] INJECT/INFUSE ELECTROLYT (01/16/15) INJECT/INFUSE NEC (01/16/15) Family History: States: No Known Family Hx - Social History Hx Tobacco Use: Yes (Quit 20yrs ago) Hx Alcohol Use: No Hx Substance Use: No - Immunization History Hx Tetanus Toxoid Vaccination: No Hx Influenza Vaccination: Yes Hx Pneumococcal Vaccination: Yes Review Of Systems Constitutional: Negative for: Fever, Chills Gastrointestinal: Positive for: Abdominal Pain. Negative for: Nausea, Vomiting Genitourinary: Positive for: Frequency Musculoskeletal: Negative for: Back Pain Skin: Negative for: Rash Physical Exam - Physical Exam Appears: Non-toxic, No Acute Distress Skin: Warm, Dry, No Rash Head: Atraumatic, Normacephalic Oral Mucosa: Moist Neck: Normal ROM, Supple Cardiovascular: Rhythm Regular Respiratory: Normal Breath Sounds, No Rales, No Rhonchi, No Wheezing Gastrointestinal/Abdominal: Bowel Sounds, Tenderness (Suprapubic), No Distention , No Guarding, No Rebound Back: No CVA Tenderness Extremity: No Pedal Edema, Capillary Refill (<2 seconds) ED Course And Treatment O2 Sat by Pulse Oximetry: 97 (RA) Pulse Ox Interpretation: Normal Medical Decision Making Medical Decision Making: same persistent L lateral abd musculoskeletal discomfort is digitally and positionally reporoducable and NOT c/w mesenteric ischemia. Defer repeat workup in 48 hours and dispo home addressing the initial complaint of musculoskeletal pain w an ice pack. pt and verbalize understanding. Language barrier- Polish speaking, and pt's underlying mental illness- bipolar, may be making a more histrionic presentation of her minor costochondritis than clinically warranted. Disposition Doctor Will See Patient In The: Office Counseled Patient/Family Regarding: Studies Performed, Diagnosis - Disposition Disposition: HOME/ ROUTINE Disposition Time: 14:40 Condition: GOOD Forms: [facility] (Nepali) - Clinical Impression Clinical Impression: Musculoskeletal abnormal finding on examination - Scribe Statement The provider has reviewed the documentation as recorded by the Mattibcamelia Hager All medical record entries made by the Mattibcamelia were at my direction and personally dictated by me. I have reviewed the chart and agree that the record accurately reflects my personal performance of the history, physical exam, medical decision making, and the department course for this patient. I have also personally directed, reviewed, and agree with the discharge instructions and disposition.
--- NOTE | 2017-06-25 16:04 | CARD ---
APPROVED REPORT EKG Measurement Heart [id number] CO [id number] <Conclusion> Normal sinus rhythm Left axis deviation Abnormal ECG
== END 2017-06-24 15:15 | disposition home or self-care (01) ==
LOC: C.ER 12:51
DX: R94.8 Abnormal results of function studies of other organs and systems (principal); I10 Essential (primary) hypertension